=== PATIENT | female | born 1960 | race Caucasian/White ===

== ENCOUNTER → 2017-11-28 | Outpatient (CLI) | payer OTHER | LOC: LAB 14:30 → LAB SHORT 14:30 | PROVIDERS: Family Medicine | DX: Z12.72 Encounter for screening for malignant neoplasm of vagina (principal) | CPT/HCPCS: G0145 ==

== ENCOUNTER → 2018-12-03 | Outpatient (CLI) | payer OTHER | END | disposition home or self-care (01) | LOC: LAB 14:45 → LAB SHORT 14:45 | PROVIDERS: Family Medicine | DX: Z12.4 Encounter for screening for malignant neoplasm of cervix (principal) | CPT/HCPCS: G0145 ==

== ENCOUNTER → 2019-07-12 | Outpatient (CLI) | payer OTHER | LOC: LAB EV 11:22 → LAB SHORT 11:22 | DX: R30.9 Painful micturition, unspecified (principal) | CPT/HCPCS: 87086 ==

== ENCOUNTER → 2019-12-09 | Outpatient (CLI) | payer OTHER | END | disposition home or self-care (01) | LOC: LAB 18:41 → LAB SHORT 18:41 | PROVIDERS: Family Medicine | DX: Z12.72 Encounter for screening for malignant neoplasm of vagina (principal); Z90.710 Acquired absence of both cervix and uterus | CPT/HCPCS: G0123 ==

== ENCOUNTER → 2020-12-23 | Outpatient (CLI) | payer OTHER | END | disposition home or self-care (01) | LOC: LAB SHORT 14:45 → LAB 14:45 | PROVIDERS: Family Medicine | DX: Z12.4 Encounter for screening for malignant neoplasm of cervix (principal) | CPT/HCPCS: G0145 ==

== ENCOUNTER 2021-04-12 11:03 | Observation (INO) | payer OTHER ==
[~2021-04-12] VITALS: Ht 172.7 cm; Wt 120.1 kg
[2021-04-12] MEDS ORDERED: METO50ER PO (11:54)
[2021-04-12] MEDS ORDERED: Aspir 8181 MG PO (11:55)
[2021-04-12] MEDS ORDERED: DICL75ER PO (11:55)
[2021-04-12 12:18] LABS: BASOPHILS ABSOLUTE AUTO 0.08 K/mm3 (0.00-0.23); BASOPHILS PERCENT AUTO 1 % (0-2); EOSINOPHILS ABSOLUTE AUTO 0.16 K/mm3 (0.00-0.68); EOSINOPHILS PERCENT AUTO 2 % (0-6); Hematocrit 39.5 % (33.0-51.0); Hemoglobin 13.2 g/dL (11.5-16.0); IMMATURE GRAN ABSOLUTE AUTO 0.06 K/mm3 (0.00-0.10); IMMATURE GRAN PERCENT AUTO 1 % (0-1); LYMPHOCYTES ABSOLUTE AUTO 2.24 K/mm3 (0.84-5.20); LYMPHOCYTES PERCENT AUTO 27 % (21-46); MONOCYTES ABSOLUTE AUTO 0.77 K/mm3 (0.16-1.47); MONOCYTES PERCENT AUTO 9 % (4-13); Mean Corpuscular HGB 32.8 pg (26.0-34.0); Mean Corpuscular HGB Conc 33.4 g/dL (31.5-36.5); Mean Corpuscular Volume 98 fL (80-100); Mean Platelet Volume 11.4 fL (9.1-12.4); NEUTROPHILS ABSOLUTE AUTO 4.92 K/mm3 (1.96-9.15); NEUTROPHILS PERCENT AUTO 60 % (41-73); Platelet Count 232 K/mm3 (150-400); RDW Coefficient Variation 13.2 % (11.7-14.2); RDW Standard Deviation 47.5 fL (35.1-46.3); Red Blood Cell Count 4.03 M/mm3 (3.80-5.20); White Blood Cell Count 8.23 K/mm3 (4.00-11.30)
[2021-04-12 12:30] LABS: Alanine Aminotransfer (ALT/SGP 38 U/L (12-78); Albumin, Blood 3.1 g/dL (3.4-5.0); Albumin/Globulin Ratio 0.8 (0.8-1.8); Alk Phos 67 U/L (50-136); Anion Gap 5 mmol/L (6-16); Aspartate Aminotrans (AST/SGOT 40 U/L (12-37); Bilirubin, Direct <0.1 mg/dL (0.0-0.3); Bilirubin, Indirect Unable to Calculate mg/dL (0.1-0.7); Bilirubin, Total 0.5 mg/dL (0.1-1.0); Blood Urea Nitrogen 12 mg/dL (8-24); Bun/Creatinine Ratio 15.9 (12.0-20.0); CO2, Blood 28 mmol/L (21-32); Chloride, Blood 105 mmol/L (98-108); Creatinine, Blood 0.75 mg/dL (0.40-1.00); Globulin, Blood 4.1 g/dL (2.2-4.0); Glomerular Filtration Rate >60 (60-); Glucose, Blood 115 mg/dL (70-99); Magnesium, Blood 2.2 mg/dL (1.6-2.4); Potassium, Blood 4.5 mmol/L (3.5-5.5); Sodium, Blood 138 mmol/L (136-145); Total Protein, Blood 7.2 g/dL (6.4-8.2); Troponin I <0.015 ng/mL (0.000-0.040)
[2021-04-12 14:42] LABS: SARS-Cov-2 (COVID-19) PCR, MMC NEGATIVE (NEGATIVE)
--- NOTE | 2021-04-12 19:06 | NUR ---
Valentina was transferred to Room 324 from ED where she was assessed for left upper extremity weakness and slurred speak. ED report that she complained of palpitation and dizziness on and off since yesterday. Lab at ED are unremarkable for CBC and BMP. CT shows no abnormalities . On arrival on the floor , pateint was alert and oriented x3 , able to give history. Reports slurred speak since yesterday . Report left upper extremity weakness mostly on the arm. Denies chest pain, dizziness , nausea , or palpitation. Left hand IV CDI , NS infusing at 100ml/hr.Possible MRI in the morning. Vital signs are stable. Continue to monitor.
[2021-04-13 05:14] LABS: BASOPHILS ABSOLUTE AUTO 0.08 K/mm3 (0.00-0.23); BASOPHILS PERCENT AUTO 1 % (0-2); EOSINOPHILS ABSOLUTE AUTO 0.17 K/mm3 (0.00-0.68); EOSINOPHILS PERCENT AUTO 2 % (0-6); Hematocrit 41.1 % (33.0-51.0); Hemoglobin 13.9 g/dL (11.5-16.0); IMMATURE GRAN ABSOLUTE AUTO 0.06 K/mm3 (0.00-0.10); IMMATURE GRAN PERCENT AUTO 1 % (0-1); LYMPHOCYTES ABSOLUTE AUTO 2.79 K/mm3 (0.84-5.20); LYMPHOCYTES PERCENT AUTO 34 % (21-46); MONOCYTES ABSOLUTE AUTO 0.65 K/mm3 (0.16-1.47); MONOCYTES PERCENT AUTO 8 % (4-13); Mean Corpuscular HGB 33.3 pg (26.0-34.0); Mean Corpuscular HGB Conc 33.8 g/dL (31.5-36.5); Mean Corpuscular Volume 98 fL (80-100); Mean Platelet Volume 10.2 fL (9.1-12.4); NEUTROPHILS ABSOLUTE AUTO 4.59 K/mm3 (1.96-9.15); NEUTROPHILS PERCENT AUTO 55 % (41-73); Platelet Count 233 K/mm3 (150-400); RDW Coefficient Variation 13.3 % (11.7-14.2); RDW Standard Deviation 47.9 fL (35.1-46.3); Red Blood Cell Count 4.18 M/mm3 (3.80-5.20); White Blood Cell Count 8.34 K/mm3 (4.00-11.30)
--- NOTE | 2021-04-13 05:19 | NUR ---
SHIFT SUMMARY: AOX3, SLOW TO RESPOND AND SOME RESPONSES ARE CHILD LIKE. 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 DENIES ANY SWALLOWING ISSUES OR PROBLEMS AMBULATING. REPORTS OFF AND ON TINGLING OF THE LEFT ARM. DENIES ANY OTHER ISSUES. VS WNL, AFEBRILE. IVF CONTINUE TO INFUSE. CALL LIGHT REMAINS IN PLACE. WILL MONITOR TILL DAYSHIFT ARRIVES.
[2021-04-13 05:35] LABS: Anion Gap 6 mmol/L (6-16); Blood Urea Nitrogen 10 mg/dL (8-24); CO2, Blood 29 mmol/L (21-32); Chloride, Blood 106 mmol/L (98-108); Creatinine, Blood 0.83 mg/dL (0.40-1.00); Glucose, Blood 107 mg/dL (70-99); LDL/HDL RATIO 2.7; Sodium, Blood 141 mmol/L (136-145); Very Low Density Lipoprot Chol 32 mg/dL (6-32)
[2021-04-13 05:36] LABS: Alanine Aminotransfer (ALT/SGP 34 U/L (12-78); Albumin, Blood 3.3 g/dL (3.4-5.0); Albumin/Globulin Ratio 0.8 (0.8-1.8); Alk Phos 70 U/L (50-136); Aspartate Aminotrans (AST/SGOT 18 U/L (12-37); Bilirubin, Total 0.4 mg/dL (0.1-1.0); Bun/Creatinine Ratio 12.1 (12.0-20.0); CHOL/HDL RATIO 4.3; Calcium, Blood 9.4 mg/dL (8.5-10.1); Cholesterol 245 mg/dL (50-200); Globulin, Blood 4.1 g/dL (2.2-4.0); Glomerular Filtration Rate >60 (60-); HDL Cholesterol 57 mg/dL (>39); Low Density Lipoprotein Chol 156 mg/dL (0-110); Total Protein, Blood 7.4 g/dL (6.4-8.2); Triglycerides 160 mg/dL (30-160)
[2021-04-13] MEDS ORDERED: EZET10 PO (14:35)
[2021-04-13] MEDS ORDERED: PRAV20 PO (14:35)
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
--- NOTE | 2021-04-13 15:14 | NUR ---
DISCHARGE INSTRUCTIONS REVIEWED WITH THE PATIENT. ALL QUESTIONS ANSWERED. IV AND TELE REMOVED. PATIENT TO DISCHARGE HOME WITH MELANIE JUARES. 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
--- NOTE | 2021-04-13 16:53 | NUR ---
PT CALLED ASKING ABOUT ZIO PATCH. FOLLOW'D UP WITH BEDSIDE RN AND RN THAT DISCHARGED PT AND THEY WERE UNSURE IF [facility] PLACED PRIOR TO DISCHARGE. CALLED AND SPOKE WITH [facility] WHO REPORTS THEY HAVE THE ORDER AND PT DC'D PRIOR TO PLACING ZIO MONITOR. THEY REPORT SCHEDULING WILL CALL PT AND SCHEDULE OUTPATIENT. PT CALLED AND UPDATED OF THIS.
--- NOTE | 2021-04-13 18:21 | NUR ---
Alert and oriented x 3 , able to make needs known. Denies any pain. vital signs are stable. Independent with ADLS. Pt should have ZIO patch but unsure if patient has one prior to DC. Pt left in stable condition. Charged Nurse called to follow up appoinment for zio patch.
== END 2021-04-13 15:10 | disposition home health service (06) ==
LOC: ER 11:03 → MEDS 11:04 → ER 15:14 → MEDS 15:14
PROVIDERS: Nurse Practitioner Acute Care; Student in an Organized Health Care Education/Training Program; ADMIT Internal Medicine
DX: G45.9 Transient cerebral ischemic attack, unspecified (principal); R07.89 Other chest pain; I10 Essential (primary) hypertension; R91.1 Solitary pulmonary nodule; K76.0 Fatty (change of) liver, not elsewhere classified; E66.01 Morbid (severe) obesity due to excess calories; Z68.38 Body mass index [BMI] 38.0-38.9, adult; E78.5 Hyperlipidemia, unspecified; M19.90 Unspecified osteoarthritis, unspecified site; Z20.822 Contact with and (suspected) exposure to COVID-19; Z88.8 Allergy status to other drugs, medicaments and biological substances
CPT/HCPCS: 36415; 70450; 70496; 70498; 70551; 71275; 80048; 80053; 80061; 80076; 82947; 83036; 83735; 84484; 85025; 92610; 93005; 93010; 93306; 97161; 97165; 97530; 99285-25; A9270; J1650; J7030; Q9967; U0004

== ENCOUNTER → 2023-11-02 | Outpatient (CLI) | payer OTHER ==
[~2023-11-02] MED LIST: Aspir 8181 MG PO; DICL75ER PO; EZET10 PO; METO50ER PO; PRAV20 PO
== END | disposition home or self-care (01) ==
LOC: LAB 11:35 → LAB SHORT 11:35
DX: N39.0 Urinary tract infection, site not specified (principal)
CPT/HCPCS: 87077; 87086; 87186

== ENCOUNTER → 2024-02-06 | Outpatient (CLI) | payer OTHER | END | disposition home or self-care (01) | LOC: LAB 10:40 → LAB SHORT 10:40 | DX: R30.0 Dysuria (principal) | CPT/HCPCS: 87086 ==

== ENCOUNTER → 2024-10-13 | Outpatient (CLI) | payer OTHER | LOC: LAB 10:49 → LAB SHORT 10:49 | DX: N39.0 Urinary tract infection, site not specified (principal) | CPT/HCPCS: 87086 ==

== ENCOUNTER → 2024-10-31 | Outpatient (CLI) | payer OTHER | LOC: LAB SHORT 16:30 → LAB 16:30 | DX: R30.0 Dysuria (principal) | CPT/HCPCS: 87086 ==